=== PATIENT | male | born 1970 | race Two or more races ===

== ENCOUNTER 2018-03-27 05:40 | Emergency (ER) | payer OTHER ==
[~2018-03-27] VITALS: Ht 172.7 cm; Wt 63.5 kg
--- NOTE | 2018-03-27 05:50 | NUR ---
PT BBRA FROM [facility] C/C OF ABD PAIN D/T "WORMS BEING IN MY STOMACH AND COMING OUT OF MY PENIS". -N/V/D. PT IS AAOX3. VSS. SKIN WNL. PT STATES HE IS A PARAPLEGIC AND ABLE TO MOVE LOWER EXTREMITIES BILATERALLY. NO S/S OF ACUTE DISTRESS NOTED. PT PLACED ON MONITOR AND POX. PT SAFETY IN PLACE. AWAITING MD FOR EVAL.
[2018-03-27] MEDS ORDERED: CEFTRIAXONE 500 MG VIAL IM ONE ×2 (06:30→12:00)
[2018-03-27] MEDS ORDERED: AZITHROMYCIN 250 MG TABLET PO ONE ×2 (06:30→12:00)
[2018-03-27] MEDS ORDERED: PENICILLIN G BENZATHINE 2.4 MMU/4 ML ML IM ONE ×4 (06:30→12:00)
[2018-03-27 06:33] LABS: BASOPHILS % (AUTO) 0.2 % (0.0-2.0); EOSINOPHILS % (AUTO) 2.2 % (0.0-6.0); HEMATOCRIT 44 % (39-51); HEMOGLOBIN 14.6 g/dL (13.5-17.5); LYMPHOCYTES # (AUTO) 2.1 /CMM (0.8-4.8); LYMPHOCYTES % (AUTO) 33.1 % (20.0-44.0); MEAN CORPUSCULAR HEMOGLOBIN 31 PG (26.0-33.0); MEAN CORPUSCULAR HGB CONC 34 g/dl (31.0-36.0); MEAN CORPUSCULAR VOLUME 93 fL (80-96); MONOCYTES # (AUTO) 0.5 /CMM (0.1-1.30); MONOCYTES % (AUTO) 8.5 % (2.0-12.0); NEUTROPHILS # (AUTO) 3.5 /CMM (1.8-8.9); PLATELET COUNT (AUTO) 318 /CMM (150-450); RDW COEFFICIENT OF VARIATION 13.1 (11.5-15.0); RED BLOOD CELL COUNT(AUTO) 4.67 MIL/uL (4.5-6.0); WHITE BLOOD COUNT (AUTO) 6.2 K/uL (4.3-11.0)
[2018-03-27] MEDS ORDERED: AZITHROMYCIN 250 MG TABLET ONE ×2 (06:40→11:53)
[2018-03-27] MEDS ORDERED: CEFTRIAXONE 500 MG VIAL ONE ×2 (06:40→11:53)
[2018-03-27 06:48] LABS: CALCIUM, SERUM 8.6 mg/dL (8.5-10.1); CARBON DIOXIDE 28 mmol/L (21-32); CHLORIDE 102 mmol/L (98-107); CREATININE 0.7 mg/dL (0.6-1.3); GLUCOSE 94 mg/dL (74-106); POTASSIUM 3.8 mmol/L (3.5-5.1); SODIUM SERUM 137 mmol/L (136-145); UREA NITROGEN, BLOOD 7 mg/dL (7-18)
[2018-03-27 06:51] LABS: ALCOHOL, BLOOD < 3 mg/dL (0-0)
--- NOTE | 2018-03-27 07:33 | NUR ---
REPORT GIVEN TO VIDYA RYDER AND VIDYA GRANT FOR PAULETTE.
--- NOTE | 2018-03-27 10:44 | NUR ---
Patient is resting comfortably in bed with eyes closed. Easily aroused. VSS
[2018-03-27] MEDS ORDERED: LIDOCAINE /MPF 1% VIAL 5 ML VIAL ONE (11:58)
--- NOTE | 2018-03-27 13:13 | NUR ---
CALLED [facility] AND SPOKE TO COLLATOR YOMI TO ARRANGE A BLS TRANSPORT TO [facility] WAS GIVEN A GAMBLING SUPERVISOR TIME OF [phone]. TRIP #: [id number]
[2018-03-27 14:23] VITALS: BP 128/86
== END 2018-03-27 14:31 | disposition home or self-care (01) ==
LOC: ER 05:42
DX: A64 Unspecified sexually transmitted disease (principal); F22 Delusional disorders; F12.10 Cannabis abuse, uncomplicated
CPT/HCPCS: 36415; 80048; 85025; 96372 ×2; 99284; A4606; G0480; J0558; J0696; J3490; Z7610

== ENCOUNTER 2018-05-19 13:10 | Emergency (ER) | payer OTHER ==
[~2018-05-19] VITALS: Ht 172.7 cm; Wt 66.2 kg
--- NOTE | 2018-05-19 13:15 | NUR ---
PT BIBRA TO ER BED 12 ACCOMPANIED BY PD. PT IS IN CUSTODY AND STARTED C/O HIP AND PENILE PAIN TODAY. PT IS REFUSING VISUAL ASSESSMENT. AGITATED. PLACED ON MONITOR. STABLE VITALS. AWAITING MD CAMPBELL.
--- NOTE | 2018-05-19 14:05 | NUR ---
DR KIM AT BEDSIDE FOR EVAL.
--- NOTE | 2018-05-19 14:17 | NUR ---
PT IS NOT MEDICALLY CLEARED. UNCOOPERATIVE. D/C TO PD. STABLE CONDITION.
[2018-05-19 14:38] VITALS: BP 135/66
== END 2018-05-19 15:00 ==
LOC: ER 13:11
DX: Z02.89 Encounter for other administrative examinations (principal); E07.9 Disorder of thyroid, unspecified; G82.20 Paraplegia, unspecified; Z86.79 Personal history of other diseases of the circulatory system
CPT/HCPCS: 99283; A4606; Z7610

== ENCOUNTER 2018-07-27 16:27 | Emergency (ER) | payer OTHER ==
[~2018-07-27] VITALS: Ht 172.7 cm; Wt 59.0 kg
[2018-07-27 17:54] LABS: BASOPHILS % (AUTO) 0.4 % (0.0-2.0); HEMATOCRIT 39 % (39-51); LYMPHOCYTES # (AUTO) 2.1 /CMM (0.8-4.8); LYMPHOCYTES % (AUTO) 25.9 % (20.0-44.0); MEAN CORPUSCULAR HGB CONC 33 g/dl (31.0-36.0); MEAN CORPUSCULAR VOLUME 95 fL (80-96); MONOCYTES # (AUTO) 0.8 /CMM (0.1-1.30); MONOCYTES % (AUTO) 10.5 % (2.0-12.0); NEUTROPHILS % (AUTO) 61.2 % (43.0-81.0); PLATELET COUNT (AUTO) 551 /CMM (150-450); RDW COEFFICIENT OF VARIATION 12.3 (11.5-15.0); RED BLOOD CELL COUNT(AUTO) 4.12 MIL/uL (4.5-6.0); WHITE BLOOD COUNT (AUTO) 8.1 K/uL (4.3-11.0)
[2018-07-27 17:59] LABS: CALCIUM, SERUM 8.3 mg/dL (8.5-10.1); CREATININE 0.7 mg/dL (0.6-1.3); POTASSIUM 4.1 mmol/L (3.5-5.1)
[2018-07-28 00:36] VITALS: BP 147/58
--- NOTE | 2018-07-28 02:33 | NUR ---
PT WAS OFFERED FOOD AND BLANKETS. PT WAS UNCOOPERATIVE AND CONTINUED TO CURSE AND YELL. SECURITY WAS CALLED TO ESCORT THE PATIENT OUT.
--- NOTE | 2018-07-28 02:35 | NUR ---
PT REFUSED TO SIGN AND ACCEPT D/C PAPERWORK
== END 2018-07-28 02:36 | disposition home or self-care (01) ==
LOC: ER 16:30
DX: L30.4 Erythema intertrigo (principal); G82.20 Paraplegia, unspecified; R01.1 Cardiac murmur, unspecified; Z98.890 Other specified postprocedural states
CPT/HCPCS: 36415; 72170-TC; 80048-TC; 85025-TC; A4606; Z7610

== ENCOUNTER 2018-07-28 08:28 | Emergency (ER) | payer OTHER ==
[~2018-07-28] VITALS: Ht 167.6 cm; Wt 54.4 kg
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
--- NOTE | 2018-07-28 09:40 | NUR ---
BOOK OR SCRIPT EDITOR DANYELLE AT BEDSIDE
--- NOTE | 2018-07-28 10:30 | NUR ---
RESTING QUEITLY, NAD NOTED, PENDING RN MANAGER PLACEMENT
--- NOTE | 2018-07-28 12:50 | NUR ---
PT STARTED YELLING AT STAFF, THREATENING TO CALL POLICE, COMPLAINING THAT HE IS HUNGRY. I EXPLAINED THAT I CAN ORDER A LUNCH TRAY FROM THE [facility] AND THE HOOKER OFF IS STILL WORKING ON FINDING PLACEMENT FOR HIM.
--- NOTE | 2018-07-28 13:15 | NUR ---
PROVIDED LUNCH TRAY PER PT REQUEST
--- NOTE | 2018-07-28 14:32 | NUR ---
RESTING QUIETLY, ALL NEEDS ATTENDED TO. AWAITING PLACEMENT
--- NOTE | 2018-07-28 15:46 | NUR ---
CALLED PT'S MOTHER, ZEYNEP, AT [phone] TO UPDATE HER ON PLAN OF CARE.
[2018-07-28] MEDS ORDERED: GABAPENTIN 300 MG CAPSULE ONE (16:29)
[2018-07-28] MEDS ORDERED: BACLOFEN (10 MG) 10 MG TABLET ONE (16:29)
--- NOTE | 2018-07-28 16:30 | NUR ---
PT REPORTS THAT HE TAKES 20MG BACLOFEN AND 600MG NEURONTIN DAILY AND DID NOT TAKE THEM TODAY. RECEIVED VERBAL ORDER FOR THOSE MEDS.
[2018-07-28] MEDS ORDERED: BACLOFEN (10 MG) 10 MG TABLET PO ONE (17:00)
[2018-07-28] MEDS ORDERED: GABAPENTIN 100 MG CAPSULE PO ONE (17:00)
--- NOTE | 2018-07-28 17:49 | NUR ---
CALLED FOR DINNER TRAY
--- NOTE | 2018-07-28 19:12 | NUR ---
REPORT GIVEN TO PIPO DASILVA FOR PAULETTE
--- NOTE | 2018-07-28 19:14 | NUR ---
PT REFUSED VS AT THIS TIME
--- NOTE | 2018-07-28 19:25 | NUR ---
REPORT RECEIVED FROM VIDYA YUNG FOR PAULETTE.
[2018-07-28 19:36] VITALS: BP 118/67
--- NOTE | 2018-07-28 19:36 | NUR ---
Patient discharged to home in stable condition. Written and verbal after care instructions given. Patient verbalizes understanding of instruction.
== END 2018-07-28 19:36 | disposition home or self-care (01) ==
LOC: ER 08:30
DX: G82.20 Paraplegia, unspecified (principal); R01.1 Cardiac murmur, unspecified; Z59.0 Homelessness; Z98.890 Other specified postprocedural states; Z60.2 Problems related to living alone; Y04.0XXA Assault by unarmed brawl or fight, initial encounter; Y93.89 Activity, other specified; Y92.89 Other specified places as the place of occurrence of the external cause; Y99.8 Other external cause status
CPT/HCPCS: A4606; Z7610